=== PATIENT | male | born 1975 | race Caucasian/White ===

== ENCOUNTER → 2019-09-12 09:04 | Outpatient (BNVA) | payer MEDICARE, MEDICAID, SELFPAY | PROVIDERS: Visit Provider Nurse Practitioner Psychiatric/Mental Health | DX: F25.0 Schizoaffective disorder, bipolar type (principal); F43.12 Post-traumatic stress disorder, chronic; F17.210 Nicotine dependence, cigarettes, uncomplicated; F15.21 Other stimulant dependence, in remission | CPT/HCPCS: 99214 ==

== ENCOUNTER → 2020-01-31 07:36 | Outpatient (BNVA) | payer MEDICARE, MEDICAID, SELFPAY | PROVIDERS: Visit Provider Nurse Practitioner Psychiatric/Mental Health | DX: F20.0 Paranoid schizophrenia (principal); F43.12 Post-traumatic stress disorder, chronic; F17.210 Nicotine dependence, cigarettes, uncomplicated; F15.21 Other stimulant dependence, in remission | CPT/HCPCS: 99214 ==

== ENCOUNTER 2020-02-01 15:54 | Inpatient (IN) | payer MEDICARE, MEDICAID, SELFPAY ==
[2020-02-01 15:59] VITALS: BP 134/74; PULSE 81; RESP 16; TEMP 36.6; O2SAT 97; BMI 18.6
--- NOTE | 2020-02-01 16:01 | W.ED.PSYCH ---
HPI - Psych General: Chief Complaint: Psychiatric Symptoms Stated Complaint: 96 Time Seen by Provider: 02/01/20 15:57 Source: patient Mode of arrival: ambulatory Limitations: no limitations History of Present Illness: HPI Narrative: 44-year-old male with a history of depression along with substance abuse. Patient is brought under a 96-hour hold by police as he is states that he wants to kill himself by injecting mercury. Patient states he has been suicidal for days. Denies any worsening improving factors. MD complaint: suicidal ideation Onset (ago): day(s) History of same: Yes Relieving factors: none Exacerbating factors: none Associated symptoms: Reports depression and suicidal ideation Review of Systems Const: Denies: fever(s), chills, body aches or change in appetite Eyes: Denies: blurry vision or eye discomfort ENMT: Denies: throat pain or dental pain Card: Denies: chest pain Resp: Denies: dyspnea GI: Denies: abdominal pain, nausea, vomiting or diarrhea : Denies: dysuria Musc: Denies: neck pain or back pain Skin/Breast: Denies: rash Neuro: Denies: headache(s) Psych: Reports: depression and suicidal ideation Apolinar/Lymph: Denies: easy bruising All/Imm: Denies: urticaria PFSH ED PFSH: Medical History Amphetamine substance use disorder, moderate, in early remission Chronic post-traumatic stress disorder Nicotine dependence, cigarettes, uncomplicated Paranoid schizophrenia Social History Smoking and tobacco status: current every day smoker cigarettes Packs smoked per day: 1 Physical Exam Const: COMMON NORMALS: no acute distress, patient oriented x3 and healthy appearing HENMT: COMMON NORMALS: normocephalic and atraumatic HEAD & SCALP: normocephalic and atraumatic Eye: COMMON NORMALS: Equal, round and reactive pupils present and EOMs intact bilaterally PUPIL: Yes Equal, round and reactive pupils present Neck/C-Spine: COMMON NORMALS: full ROM and supple Chest: COMMONS NORMALS: normal inspection of the chest and normal palpation of entire chest wall Resp: COMMON NORMALS: normal respiratory effort, No retractions, No use of accessory muscles and clear to auscultation bilaterally AUSCULTATION: clear to auscultation bilaterally Cardio: COMMON NORMALS: regular rate, regular rhythm and No murmurs present (Cardio) RATE: regular rate RHYTHM: regular rhythm GI: COMMON NORMALS: Normal to inspection, nondistended, normoactive bowel sounds present, Soft to palpation, non-tender and no masses PALPATION: Yes Soft to palpation Extremity: COMMON NORMALS: normal to inspection and full ROM Neuro: COMMON NORMALS: patient oriented x3, moves all extremities and no focal motor deficits Psych: COMMON NORMALS: Normal thought process present and cooperative MOOD & AFFECT: Yes depressed mood THOUGHT PROCESS: Normal thought process present THOUGHT CONTENT: Yes Suicidality present Skin: COMMON NORMALS: no rashes or lesions noted and no wounds GENERAL SKIN EXAM: no rashes or lesions noted MDM - Psych MDM Narrative: Medical decision making narrative: Patient presents here with suicidal ideations and is under 96-hour hold. Patient medically cleared I spoke to psychiatrist Dr. Martin and will admit. Lab Data: Labs: Lab Results 02/01/20 02/01/20 02/01/20 Range/Units 16:18 16:18 16:50 WBC 8.9 (4.0-10.0) 10^3/ uL RBC 4.58 (4.1-5.3) 10^6/u L Hgb 14.0 (11.7-16.6) g/dL Hct 41.6 L (42.0-52.0) % MCV 90.8 (80-94) fL MCH 30.6 (28.0-34.0) pg MCHC 33.7 (30.0-36.0) g/dL RDW 14.1 (12.1-15.1) % Plt Count 290 (130-400) 10^3/c mm MPV 10.1 (7.4-10.4) fL Neut % (Auto) 65.0 % Lymph % (Auto) 24.9 % [place] % (Auto) 6.2 % Eos % (Auto) 2.7 % Baso % (Auto) 0.9 % Neut # (Auto) 5.8 (1.8-7.7) 10^3/u L Lymph # (Auto) 2.2 (0.8-4.8) 10^3/u L [place] # (Auto) 0.6 (0.2-0.9) 10^3/u L Eos # (Auto) 0.2 (0.0-0.8) 10^3/u L Baso # (Auto) 0.1 (0.0-0.1) 10^3/u L Nucleated RBC % (a uto) 0 % Nucleated RBCs # 0.0 /100WBC Sodium 139 (136-145) mmol/L Potassium 3.7 (3.5-5.1) mmol/L Chloride 103 (98-107) mmol/L Carbon Dioxide 24 (22-29) mmol/L Anion Gap 15.7 (5-19) BUN 8 (6-20) mg/dL Creatinine 0.7 (0.7-1.2) mg/dL GFR Calculation 123.1 (90-130) mL/min Glucose 111 (65-115) mg/dL Calculated Osmolal ity 285 (285-295) mOsm/k g Calcium 9.4 (8.5-10.5) mg/dL Total Bilirubin 0.3 (0.15-1.2) mg/dL AST 19 (0-40) U/L ALT 12 (0-41) U/L Alkaline Phosphata se 58 (40-130) IU/L Total Protein 7.0 (6.6-8.7) g/dL Albumin 4.6 (3.5-5.2) g/dL Globulin 2.4 (1.3-4.6) g/dL Salicylates < 0.3 L (3-10) mg/dL Urine Opiates Scre en Negative (Negative) ng/mL Acetaminophen < 5.0 L (10-30) ug/mL Ur Barbiturates Sc reen Negative (Negative) ng/mL Ur Phencyclidine S crn Negative (Negative) ng/mL Ur Amphetamines Sc reen Positive H (Negative) ng/mL U Benzodiazepines Scrn Negative (Negative) ng/mL Urine Cocaine Scre en Negative (Negative) ng/mL U Marijuana (THC) Screen Positive H (Negative) ng/mL Ethyl Alcohol < 10 (0-10) mg/dL Discharge Plan Discharge Patient Disposition: Admitted As Inpatient Admit Provider: Bernardo Martin Clinical Impression: Suicidal ideation Condition: Stable Discharge Date/Time: 02/01/20 17:17 Coding Level of Care Code ED Reversal Print Inspector for Chg Fwd Exam Comprehensive
[2020-02-01] MEDS: LORazepam 2 mg/mL INJ 1 mL IM (16:33)
[2020-02-01] MEDS: haloperidol inj 5 mg/mL INJ 1 mL IM (16:33)
[2020-02-01 16:35] LABS: Basophils # 0.1 10^3/uL (0.0-0.1); Basophils % 0.9 %; Eosinophils # 0.2 10^3/uL (0.0-0.8); Eosinophils % 2.7 %; Hematocrit 41.6 % (42.0-52.0); Lymphocytes # 2.2 10^3/uL (0.8-4.8); Lymphocytes % 24.9 %; Mean Corpuscular HGB Conc 33.7 g/dL (30.0-36.0); Mean Corpuscular Hemoglobin 30.6 pg (28.0-34.0); Mean Corpuscular Volume 90.8 fL (80-94); Mean Platelet Volume 10.1 fL (7.4-10.4); Monocytes # 0.6 10^3/uL (0.2-0.9); Monocytes % 6.2 %; Neutrophils # 5.8 10^3/uL (1.8-7.7); Nucleated Red Blood Cells % 0 %; Platelet Count 290 10^3/cmm (130-400); Red Blood Count 4.58 10^6/uL (4.1-5.3); Red Cell Distribution Width 14.1 % (12.1-15.1); White Blood Count 8.9 10^3/uL (4.0-10.0)
[2020-02-01 16:54] LABS: Alanine Aminotransferase 12 U/L (0-41); Albumin Level 4.6 g/dL (3.5-5.2); Alkaline Phosphatase 58 IU/L (40-130); Anion Gap 15.7 (5-19); Aspartate Amino Transferase 19 U/L (0-40); Blood Urea Nitrogen 8 mg/dL (6-20); Calcium 9.4 mg/dL (8.5-10.5); Carbon Dioxide 24 mmol/L (22-29); Chloride 103 mmol/L (98-107); Globulin 2.4 g/dL (1.3-4.6); Glomerular Filtration Rate 123.1 mL/min (90-130); Glucose 111 mg/dL (65-115); Osmolality Calculated 285 mOsm/kg (285-295); Potassium 3.7 mmol/L (3.5-5.1); Sodium 139 mmol/L (136-145); Total Bilirubin 0.3 mg/dL (0.15-1.2)
[2020-02-01 17:07] LABS: Acetaminophen < 5.0 ug/mL (10-30); Alcohol Level < 10 mg/dL (0-10); Salicylate < 0.3 mg/dL (3-10)
[2020-02-01 17:07] LABS: Amphetamines Screen Urine Positive (Negative); Barbiturates Screen Urine Negative (Negative); Benzodiazepines Screen Urine Negative (Negative); Cocaine Screen Urine Negative (Negative); Opiate Screen Urine Negative (Negative); PCP Screen Urine Negative (Negative); THC Screen Urine Positive (Negative)
[2020-02-01 17:31] VITALS: BP 120/67; PULSE 72; RESP 20; TEMP 37.2; O2SAT 97
[2020-02-01 22:00] VITALS: BP 124/80; PULSE 75; RESP 15; TEMP 36.8; O2SAT 99
[2020-02-02 06:00] VITALS: BP 125/87; PULSE 85; RESP 17; TEMP 36.8; O2SAT 98
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
[2020-02-02 14:00] VITALS: BP 112/79; PULSE 93; RESP 20; TEMP 36.7; O2SAT 98
[2020-02-02] MEDS: hyDROXYzine 25 mg Capsule 50 MG PO (20:40)
[2020-02-02] MEDS: haloperidol 5 mg Tablet PO (20:40)
[2020-02-02] MEDS: trazodone 50 mg Tablet PO (20:41)
[2020-02-02 20:42] VITALS: BP 109/68; PULSE 82; RESP 16; TEMP 36.9; O2SAT 95
[2020-02-03 06:00] VITALS: BP 103/74; PULSE 94; RESP 15; TEMP 36.8; O2SAT 96
--- NOTE | 2020-02-03 09:32 | P.PN_ITS ---
Subjective NPU Subjective: Interval history: Jaya presents today with not much to say. Maybe a little bit brighter in affect but reporting that the Haldol was fine last night. He understands the plan of getting him on the Haldol and likely giving him his first injection prior to discharge at the beginning of the week. He denied any major issues and reports that he slept fairly well. Mental Status Exam MSE Comments: This is an underweight, white male, with limited dress, grooming, and eye contact. No abnormal movements except for psychomotor retardation. Semi-cooperative with exam in mild distress. Speech was decreased rate and volume and limited. Mood described as a little better; affect congruent. Thought process, organized. He does endorse suicidal ideation. Attention, concentration, and memory appear intact but were not formally tested. He is alert and oriented times three. Insight and judgment are limited. Impulse control is impaired. Vitals/I&O/Wt Last Vital Signs Temp 98.3 F 02/03/20 20:01 Pulse 86 02/03/20 20:01 Resp 14 02/03/20 20:01 BP 96/65 02/03/20 20:01 Pulse Ox 96 02/03/20 20:01 Data NPU : 02/01/20 16:18 02/01/20 16:18 A&P Additional A&P Information (1) Suicidal ideation: (2) Paranoid schizophrenia: (3) Amphetamine substance use disorder, moderate, in early remission: (4) Nicotine dependence, cigarettes, uncomplicated: (5) Chronic post-traumatic stress disorder: This is a 44 year old, white male, with a long history of mental health, legal addiction, and significant psychosocial issues with a current diagnosis with his outpatient provider of schizophrenia, currently with active addiction and a willingness to get restarted on medication. Continue current medication Encourage individual, group, and milieu therapy. Continue q 15-minute checks for safety. Will work for outpatient discharge to sober living treatment at the highest level of care to which he is willing to commit. Involuntary Hold Information 96 Hour Hold: 96 Hour Involuntary Admission: Yes 96 Hour Hold Ending Date: 02/07/20 96 Hour Hold Ending Time: 15:54 Attestations NPU Medical Necessity Statement*: Inpatient hospitalization is medically necessary and the clinically appropriate intervention at this time. We will monitor medications and make changes as indicated. Likely length of stay is 2-4 days. Coding Level of Care Code Acute [employer] Teacher for Arturo Mtz
[2020-02-03 14:00] VITALS: BP 104/67; PULSE 99; RESP 18; TEMP 36.9; O2SAT 98
[2020-02-03 20:01] VITALS: BP 96/65; PULSE 86; RESP 14; TEMP 36.8; O2SAT 96
[2020-02-03] MEDS: haloperidol 5 mg Tablet PO (21:21)
[2020-02-04 06:00] VITALS: BP 123/85; PULSE 83; RESP 17; TEMP 36.7; O2SAT 98
[2020-02-04] MEDS: nicotine 2 mg Gum BUCCAL (12:35)
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
[2020-02-04 13:10] VITALS: BP 124/81; PULSE 98; RESP 18; TEMP 36.6; O2SAT 97
[2020-02-04] MEDS: trazodone 50 mg Tablet PO (21:22)
[2020-02-04] MEDS: haloperidol 5 mg Tablet PO (21:22)
[2020-02-04 22:00] VITALS: BP 113/76; PULSE 74; RESP 16; TEMP 36.8; O2SAT 96
--- NOTE | 2020-02-04 23:05 | PC.NURSE ---
Pt was given scheduled Haldol and PRN Trazodone at HS.
[2020-02-05 06:00] VITALS: BP 91/61; PULSE 94; RESP 16; TEMP 36.7; O2SAT 95
[2020-02-05] MEDS: nicotine 2 mg Gum BUCCAL ×2 (09:11→11:23)
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
[2020-02-05 13:06] VITALS: BP 91/61; PULSE 94; RESP 16; TEMP 36.7; O2SAT 95
--- NOTE | 2020-02-05 15:56 | PC.SOCIAL ---
*IMM* Patient Received the Important Message from Medicare. Signed copy is in the chart and a copy was gave to the patient.
== END 2020-02-05 16:45 | disposition home or self-care (01) | DRG 885 ==
LOC: ER 16:26 → NP 17:10
PROVIDERS: Emergency Medicine; Admitting Provider Psychiatry & Neurology Psychiatry; Visit Provider Psychiatry & Neurology Psychiatry
DX: F20.0 Paranoid schizophrenia (principal); R45.851 Suicidal ideations; F17.210 Nicotine dependence, cigarettes, uncomplicated; F43.12 Post-traumatic stress disorder, chronic; F15.11 Other stimulant abuse, in remission
CPT/HCPCS: 12345; 36415; 80053; 80306; 80307; 85025; 96372; 99214; 99284; J1630; J1631; J2060

== ENCOUNTER → 2020-05-31 15:30 | Outpatient (BNVA) | payer MEDICARE, MEDICAID, SELFPAY | PROVIDERS: Visit Provider Nurse Practitioner Psychiatric/Mental Health | DX: F20.0 Paranoid schizophrenia (principal); F43.12 Post-traumatic stress disorder, chronic; F17.210 Nicotine dependence, cigarettes, uncomplicated; F15.21 Other stimulant dependence, in remission | CPT/HCPCS: 99213 ==

== ENCOUNTER → 2020-06-18 13:35 | Outpatient (BNVA) | payer MEDICARE, MEDICAID, SELFPAY | PROVIDERS: Visit Provider Nurse Practitioner Psychiatric/Mental Health | DX: F20.0 Paranoid schizophrenia (principal) | CPT/HCPCS: 96372; J1631 ==

== ENCOUNTER → 2020-07-02 13:01 | Outpatient (BNVA) | payer MEDICARE, MEDICAID, SELFPAY | PROVIDERS: Visit Provider Nurse Practitioner Psychiatric/Mental Health | DX: F20.0 Paranoid schizophrenia (principal); F43.12 Post-traumatic stress disorder, chronic; F17.210 Nicotine dependence, cigarettes, uncomplicated; F15.21 Other stimulant dependence, in remission | CPT/HCPCS: 99213 ==

== ENCOUNTER → 2020-07-18 14:49 | Outpatient (BNVA) | payer MEDICARE, MEDICAID, SELFPAY | PROVIDERS: Visit Provider Nurse Practitioner Psychiatric/Mental Health | DX: F20.0 Paranoid schizophrenia (principal); F43.12 Post-traumatic stress disorder, chronic; F17.210 Nicotine dependence, cigarettes, uncomplicated; F15.21 Other stimulant dependence, in remission | CPT/HCPCS: 96372; 99213; J1631 ==

== ENCOUNTER 2021-03-03 12:23 | Observation (INO) | payer MEDICARE, MEDICAID, SELFPAY ==
[2021-03-03] VITALS (13 sets, daily range): BP systolic 74–129; BP diastolic 38–91; PULSE 45–101; RESP 10–33; TEMP 36.6–36.8; O2SAT 2–100; BMI 18.6
--- NOTE | 2021-03-03 12:35 | XRR_ITS ---
PROCEDURE INFORMATION: Exam: XR Chest Exam date and time: 03/03/2021 12:35 PM Age: 45 years old Clinical indication: Pain and injury or trauma; Fall; Blunt trauma (contusions or hematomas); Chest wall pain; Additional info: Fall/ arm pain TECHNIQUE: Imaging protocol: XR of the chest. Views: 1 view. COMPARISON: CT cervical spin wo con* [id number] 03/03/2021 12:50 PM FINDINGS: Lungs: Unremarkable. No consolidation. Pleural spaces: Unremarkable. No pleural effusion. No pneumothorax. Heart/Mediastinum: Unremarkable. No cardiomegaly. Bones/joints: Unremarkable. XR/XR chest 1V portable [id number] IMPRESSION: No acute findings.
--- NOTE | 2021-03-03 12:35 | CT_ITS ---
WS: [id number] CT HEAD NONCONTRAST HISTORY: fall/head contusion/ seizure TECHNIQUE: Contiguous axial imaging performed through the brain in 2.5 mm imaging. Bone and soft tiss ue windows. Sagittal and coronal reformats reviewed. All CT scans at [facility] use at le ast one of these dose optimization techniques: automated exposure control; mA and/or kV adjustment pe r patient size (includes targeted exams where dose is matched to clinical indication); or iterative r econstruction. DLP: 838.14 mGy.cm COMPARISON: 06/13/2014 No acute intracranial hemorrhage, midline shift or mass effect. No atrophy or prior infarcts or herniation. Ventricles: Normal size with no hydrocephalus. Paranasal sinuses: As visualized are clear. Mastoid air cells: Well pneumatized. Calvarium and scalp: Skull is intact with no soft tissue edema or swelling. CT/CT head wo con* [id number] IMPRESSION: Negative head CT.
--- NOTE | 2021-03-03 12:35 | XRR_ITS ---
PROCEDURE INFORMATION: Exam: XR Right Humerus Exam date and time: 03/03/2021 12:35 PM Age: 45 years old Clinical indication: Pain and injury or trauma; Fall; Blunt trauma (contusions or hematomas); Arm, upper; Right; Upper arm; Additional info: Fall/ arm pain TECHNIQUE: Imaging protocol: XR Right humerus. Views: 2 or more views. COMPARISON: US SoftTissue/Extrem t [id number] 03/19/2019 3:11 PM FINDINGS: Bones/joints: Negative for acute bony abnormality Soft tissues: Unremarkable XR/[place] [id number] IMPRESSION: No acute findings.
--- NOTE | 2021-03-03 12:35 | CT_ITS ---
WS: [id number] CT CERVICAL SPINE HISTORY: fall/ neck pain TECHNIQUE: Contiguous 2.5 mm axial imaging performed through the entire cervical spine. Sagittal and coronal reformats also performed. All CT scans at [facility] use at least one of these do se optimization techniques: automated exposure control; mA and/or kV adjustment per patient size (inc ludes targeted exams where dose is matched to clinical indication); or iterative reconstruction. DLP: 445.34 mGy.cm COMPARISON: None available. Straightening of the normal cervical lordosis. Reversal of normal size curvature at C5-6. Disc space narrowing and desiccation with osteophytosis most significant at the C5-6 level. Lateral masses of C1 and C2 are aligned. Odontoid is intact. Craniocervical junction is normal. C2-C3: Normal. C3-C4: Normal. C4-C5: Mild osteophytic ridging and mild LEFT foraminal narrowing. C5-C6: Moderate osteophytic ridging and a central disc protrusion. Mild central with moderate bilater al foraminal narrowing. C6-C7: Diffuse osteophytic ridging with bilateral foraminal osteophytes resulting in bilateral mild-t o-moderate foraminal stenosis. C7-T1: Normal. Soft tissues are normal. Lung apices are clear. CT/CT cervical spin wo con* [id number] IMPRESSION: 1. No acute cervical spine fracture. 2. Reversal normal cervical lordosis centered at C5-6. 3. Moderate bilateral foraminal stenosis at C5-6 and mild to moderate at C6-7 due to osteophytes predominantly.
--- NOTE | 2021-03-03 12:37 | ECG_ITS ---
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 Measurements Intervals [place] Rate: 77 P: 72 [place]: 130 QRS: 61 QRSD: 86 T: 71 QT: 380 QTc: 433 Interpretive Statements SINUS RHYTHM No previous ECG available for comparison Electronically Signed On 03-03-2021 19:01:17 CDT by Lj Booth M.D. [email or web address]
--- NOTE | 2021-03-03 12:43 | ED_ITS ---
HPI - Fall General: Chief Complaint: General Medical Stated Complaint: FALL, SEIZURE LIKE ACTIVITY Time Seen by Provider: 03/03/21 12:24 History of Present Illness: HPI Narrative: The patient is a 45-year-old male incarcerated who comes to the ER after a fall at group home where he possibly had a seizure. He said he was on the phone with his mother and told her that it felt like he was going to pass out. Officers noted a loud bang where he then fell hitting his arm on a fan and head on the ground. He said approximately 2 minutes he had some shaking and confusion on the floor that represented a seizure to them. After that he woke and was mildly confused for a minute or 2 and then answered questions appropriately. The patient says he thinks he has had several seizures in the past at home where he just wakes up and was unresponsive at some point but he does not know and has not been diagnosed with seizures. He takes no medications for this. He chronically uses methamphetamines but has not for 2 weeks since he has been in group home. His only complaint is right arm pain near the tricep muscle where it hit the fan. He does not even complain of a headache however officers say his fall and head injury were significant. He is in c-collar. EMS noted his sugar was in the 40s and they gave him oral glucose which brought it up to the 80s. complaint: fall Fall from: standing Fall witnessed: no Place fall occurred: other (group home) Loss of consciousness: Unsure Prolonged down time: no Symptoms prior to fall: lightheadedness Location of injury: head Severity: moderate Associated symptoms-after fall: Reports no associated symptoms; Denies abdominal pain, chest pain, confusion, difficulty walking, headache(s) or neck pain Review of Systems General: Reports: 10 or more systems reviewed and unremarkable except in HPI and below Const: Denies: fatigue Eyes: Denies: change in vision, blurry vision or eye redness ENMT: Denies: throat pain, swelling of lips/tongue, ear or mastoid pain or nasal congestion Card: Denies: chest pain, palpitations, irregular heart rhythm, edema, dyspnea on exertion or orthopnea Resp: Denies: dyspnea, productive cough or non-productive cough GI: Denies: abdominal pain, diarrhea or GI cramping : Denies: flank pain, urinary frequency or urinary urgency Musc: Reports: other (Right arm pain); Denies: neck pain, back pain, extremity pain, joint pain, joint redness, limited range of motion or muscle weakness Skin/Breast: Denies: rash, pruritus, erythema, skin pain or skin tenderness Neuro: Denies: headache(s), numbness in extremities, weakness in extremities, sensory changes, difficulty walking, dizziness, confusion or Slurred speech present Psych: Denies: anxiety or depression Endo: Denies: polyuria All/Imm: Denies: urticaria, throat swelling or tongue swelling PFSH ED PFSH: Medical History Amphetamine substance use disorder, moderate, in early remission Chronic post-traumatic stress disorder Nicotine dependence, cigarettes, uncomplicated Paranoid schizophrenia Surgical History H/O knee surgery Family History Family/Other Family history of premature coronary artery disease Uncle sudden cardiac arrest age 19 Social History Smoking and tobacco status: current every day smoker cigarettes Packs smoked per day: 2 Alcohol intake: never Substance/Drug Use: current Substance/Drug use type: Marijuana and Methamphetamine Physical Exam Const: COMMON NORMALS: no acute distress, average body habitus, patient oriented x3, no limitations, healthy appearing, alert and well nourished GENERAL APPEARANCE: cooperative, comfortable, well kempt and well developed ORIENTATION/CONSCIOUSNESS: Yes awake, Yes oriented to person, Yes oriented to place and Yes oriented to time HENMT: COMMON NORMALS: normocephalic, external ears normal and Normal external nose present HEAD & SCALP: normal to inspection and normocephalic NOSE: Normal external nose present EXTERNAL EAR: Yes external ears normal MOUTH: Normal oral and palatal mucosa present THROAT: posterior oropharynx normal Eye: COMMON NORMALS: Equal, round and reactive pupils present and EOMs intact bilaterally GENERAL EYE: appearance normal, both eyes and all related structures PUPIL: Yes Equal, round and reactive pupils present Neck/C-Spine: COMMON NORMALS: full ROM, no lymphadenopathy, no meningeal signs and no JVD GENERAL: Yes normal visual inspection Lymph: LYMPHATIC: no lymphadenopathy noted Chest: COMMONS NORMALS: normal inspection of the chest and normal palpation of entire chest wall Resp: COMMON NORMALS: normal respiratory effort, No retractions, No use of accessory muscles, clear to auscultation bilaterally and percussion normal EFFORT & INSPECTION: Yes able to speak in complete sentences AUSCULTATION: clear to auscultation bilaterally PERCUSSION: percussion normal Cardio: COMMON NORMALS: no JVD, regular rate, regular rhythm, S1 normal heart sound present, S2 normal heart sound present and Peripheral pulses 2+ throughout RATE: regular rate RHYTHM: regular rhythm HEART SOUNDS: S1 normal heart sound present and S2 normal heart sound present PERIPHERAL PULSES: Peripheral pulses 2+ throughout GI: COMMON NORMALS: Normal to inspection, nondistended, normoactive bowel sounds present, Soft to palpation, non-tender and no masses INSPECTION: Yes normal to inspection PALPATION: Yes Soft to palpation : COMMON NORMALS: Yes no CVA tenderness BLADDER/KIDNEY EXAM: Yes no CVA tenderness Back/Pelvis: COMMON NORMALS: no CVA tenderness, thoracic and lumbar spine normal to inspection, no thoracic nor lumbar tenderness and thoraco-lumbar ROM normal Extremity: COMMON NORMALS: normal to inspection, full ROM, capillary refill normal, no joint enlargement and no pedal edema GENERAL: Yes normal exam except as noted Neuro: COMMON NORMALS: patient oriented x3, CN's II-XII intact bilaterally, moves all extremities, no focal motor deficits, no sensory deficits noted and gait normal SENSORIUM/ORIENTATION: Yes alert, Yes oriented to person, Yes oriented to place and Yes oriented to time MENINGEAL SIGNS: Yes no meningeal signs Psych: COMMON NORMALS: mental status grossly normal, Normal thought process present, cooperative, normal affect and speech normal APPEARANCE: Yes well kempt ATTITUDE: Yes calm SPEECH: Yes normal speech THOUGHT PROCESS: Normal thought process present Skin: COMMON NORMALS: no rashes or lesions noted GENERAL SKIN EXAM: no rashes or lesions noted Course Vital Signs: Vital signs: Vital Signs Temperature 98.3 F 03/03/21 19:30 Pulse Rate 93 03/03/21 22:00 Respiratory Rate 10 L 03/03/21 19:30 Blood Pressure 129/77 03/03/21 19:30 Pulse Oximetry 90 03/03/21 19:30 MDM - Fall MDM Narrative: Medical decision making narrative: The patient is a 45-year-old male who came to the ER after he had a syncopal episode and possible seizure while in group home. He has been in group home for 2 weeks. Formerly a meth abuser. His initial work-up for his injuries was negative and as the nurse evaluated him he began to feel nauseous and had a bradycardic episode with a couple long asystole pauses a few seconds long and his rate went down to the 30s for a couple minutes. He was slightly altered, slightly hypoxic in the mid 80s, and shaking. I understand how this could look like a seizure to nonmedical personnel. During the initial interview he said he assumed he has seizures because he has had several similar episodes at home where he has woken up on the floor and does not know what happened. It is possible these episodes are likely caused by a bradycardia event though unknown. Discussed with cardiology Dr. Greogry who will consult upstairs and Dr. Xavier accepts for admission. Lab Data: Labs: Lab Results 03/03/21 03/03/21 03/03/21 Range/Units 14:25 14:25 14:25 WBC 13.4 H (4.0-10.0) 10^3/ uL RBC 4.81 (4.1-5.3) 10^6/u L Hgb 14.7 (11.7-16.6) g/dL Hct 43.9 (42.0-52.0) % MCV 91.3 (80-94) fL MCH 30.6 (28.0-34.0) pg MCHC 33.5 (30.0-36.0) g/dL RDW 12.7 (12.1-15.1) % Plt Count 339 (130-400) 10^3/c mm MPV 10.8 H (7.4-10.4) fL Neut % (Auto) 75.9 % Lymph % (Auto) 18.1 % [place] % (Auto) 4.3 % Eos % (Auto) 0.6 % Baso % (Auto) 0.7 % Neut # (Auto) 10.14 H (1.8-7.7) 10^3/u L Lymph # (Auto) 2.4 (0.8-4.8) 10^3/u L [place] # (Auto) 0.6 (0.2-0.9) 10^3/u L Eos # (Auto) 0.1 (0.0-0.8) 10^3/u L Baso # (Auto) 0.1 (0.0-0.1) 10^3/u L Nucleated RBC % (a uto) 0 % Nucleated RBCs # 0.0 /100WBC Sodium 138 (136-145) mmol/L Potassium 4.3 (3.5-5.1) mmol/L Chloride 99 (98-107) mmol/L Carbon Dioxide 28 (22-29) mmol/L Anion Gap 15.3 (5-19) BUN 10 (6-20) mg/dL Creatinine 0.9 (0.7-1.2) mg/dL GFR Calculation 91.7 (90-130) mL/min Glucose 110 (65-115) mg/dL Calculated Osmolal ity 286 (285-295) mOsm/k g Lactate 2.6 H (0.5-2.2) mmol/L Calcium 9.5 (8.5-10.5) mg/dL Phosphorus 3.5 (2.5-4.5) mg/dL Magnesium 2.1 (1.7-2.3) mg/dL Total Bilirubin 0.3 (0.15-1.2) mg/dL AST 12 (0-40) U/L ALT 8 (0-41) U/L Alkaline Phosphata se 65 (40-130) IU/L Creatine Kinase 26 L (39-308) U/L Troponin T Baselin e (0-15) ng/L Total Protein 6.8 (6.6-8.7) g/dL Albumin 4.4 (3.5-5.2) g/dL Globulin 2.4 (1.3-4.6) g/dL TSH 1.60 (0.27-4.20) uIU/ mL Urine Color (Yellow) Urine Appearance (CLEAR) Urine pH (5-7) Ur Specific Gravit y (1.005-1.030) Urine Protein (Negative) Urine Glucose (UA) (Normal) Urine Ketones (Negative) Urine Blood (Negative) Urine Nitrate (Negative) Urine Bilirubin (Negative) Prot Sulfosalicyli c Acd (Negative) Urine Urobilinogen (Negative) mg/dL Ur Leukocyte Rosario ase (Negative) Urine Opiates Scre en (Negative) ng/mL Ur Barbiturates Sc reen (Negative) ng/mL Ur Phencyclidine S crn (Negative) ng/mL Ur Amphetamines Sc reen (Negative) ng/mL U Benzodiazepines Scrn (Negative) ng/mL Urine Cocaine Scre en (Negative) ng/mL U Marijuana (THC) Screen (Negative) ng/mL 03/03/21 03/03/21 03/03/21 Range/Units 14:25 15:15 15:15 WBC (4.0-10.0) 10^3/ uL RBC (4.1-5.3) 10^6/u L Hgb (11.7-16.6) g/dL Hct (42.0-52.0) % MCV (80-94) fL MCH (28.0-34.0) pg MCHC (30.0-36.0) g/dL RDW (12.1-15.1) % Plt Count (130-400) 10^3/c mm MPV (7.4-10.4) fL Neut % (Auto) % Lymph % (Auto) % [place] % (Auto) % Eos % (Auto) % Baso % (Auto) % Neut # (Auto) (1.8-7.7) 10^3/u L Lymph # (Auto) (0.8-4.8) 10^3/u L [place] # (Auto) (0.2-0.9) 10^3/u L Eos # (Auto) (0.0-0.8) 10^3/u L Baso # (Auto) (0.0-0.1) 10^3/u L Nucleated RBC % (a uto) % Nucleated RBCs # /100WBC Sodium (136-145) mmol/L Potassium (3.5-5.1) mmol/L Chloride (98-107) mmol/L Carbon Dioxide (22-29) mmol/L Anion Gap (5-19) BUN (6-20) mg/dL Creatinine (0.7-1.2) mg/dL GFR Calculation (90-130) mL/min Glucose (65-115) mg/dL Calculated Osmolal ity (285-295) mOsm/k g Lactate (0.5-2.2) mmol/L Calcium (8.5-10.5) mg/dL Phosphorus (2.5-4.5) mg/dL Magnesium (1.7-2.3) mg/dL Total Bilirubin (0.15-1.2) mg/dL AST (0-40) U/L ALT (0-41) U/L Alkaline Phosphata se (40-130) IU/L Creatine Kinase (39-308) U/L Troponin T Baselin e 6 (0-15) ng/L Total Protein (6.6-8.7) g/dL Albumin (3.5-5.2) g/dL Globulin (1.3-4.6) g/dL TSH (0.27-4.20) uIU/ mL Urine Color Yellow (Yellow) Urine Appearance Clear (CLEAR) Urine pH 9 H (5-7) Ur Specific Gravit y 1.015 (1.005-1.030) Urine Protein Neg (Negative) Urine Glucose (UA) Norm (Normal) Urine Ketones Negative (Negative) Urine Blood Neg (Negative) Urine Nitrate Negative (Negative) Urine Bilirubin Neg (Negative) Prot Sulfosalicyli c Acd Negative (Negative) Urine Urobilinogen Norm (Negative) mg/dL Ur Leukocyte Rosario ase Negative (Negative) Urine Opiates Scre en Negative (Negative) ng/mL Ur Barbiturates Sc reen Negative (Negative) ng/mL Ur Phencyclidine S crn Negative (Negative) ng/mL Ur Amphetamines Sc reen Negative (Negative) ng/mL U Benzodiazepines Scrn Negative (Negative) ng/mL Urine Cocaine Scre en Negative (Negative) ng/mL U Marijuana (THC) Screen Negative (Negative) ng/mL Discharge Plan Discharge Patient Disposition: Admitted As Inpatient Admit Provider: Judith Xavier Clinical Impression: Bradycardia, Sinus pause Condition: Stable Coding Level of Care Code ED Instructor Hairspring for g Fwd Exam Comprehensive
--- NOTE | 2021-03-03 12:47 | PC.NURSE ---
pt to ct by stretcher with tech
--- NOTE | 2021-03-03 13:55 | PC.NURSE ---
multiple IV stick attempts deemed unsuccessful. ED provider notified.
--- NOTE | 2021-03-03 13:59 | PC.NURSE ---
C-collar off pt
[2021-03-03] MEDS: sodium chloride 0.9% 1,000 ML 999 ML IV (14:00)
--- NOTE | 2021-03-03 14:19 | ECG_ITS ---
[facility] Test Date: 2021-03-03 Pat Name: Jaya Cary Department: Room: Gender: Male Scallop Cutter Machine: : 1975 Requested By: Jeancarlos Grover Order Number: [id number] Pooja MD: Lj Booth M.D. Measurements Intervals [place] Rate: 59 P: 74 CA: 128 QRS: 71 QRSD: 86 T: 78 QT: 468 QTc: 466 Interpretive Statements SINUS BRADYCARDIA PROLONGED QT INTERVAL Diffuse early repolarization changes INTERPRETATION BASED ON A DEFAULT AGE OF 40 YEARS Compared to ECG 03/03/2021 13:22:18 Prolonged QT interval now present Sinus rhythm no longer present Electronically Signed On 03-03-2021 19:01:34 CDT by Lj Booth M.D. [id number] f
--- NOTE | 2021-03-03 14:29 | PC.NURSE ---
while IV starts being attempted pt had an episode of symptomatic bradycardia. pt pulse dropped to 25bpm. Pt became very nauseous, diaphoretic, and dizzy. ED provider in room
--- NOTE | 2021-03-03 14:38 | PC.NURSE ---
episodes of bradycardia printout in paper chart.
[2021-03-03 14:40] LABS: Basophils # 0.1 10^3/uL (0.0-0.1); Basophils % 0.7 %; Eosinophils # 0.1 10^3/uL (0.0-0.8); Eosinophils % 0.6 %; Hematocrit 43.9 % (42.0-52.0); Hemoglobin 14.7 g/dL (11.7-16.6); Lymphocytes # 2.4 10^3/uL (0.8-4.8); Lymphocytes % 18.1 %; Mean Corpuscular HGB Conc 33.5 g/dL (30.0-36.0); Mean Corpuscular Hemoglobin 30.6 pg (28.0-34.0); Mean Corpuscular Volume 91.3 fL (80-94); Mean Platelet Volume 10.8 fL (7.4-10.4); Monocytes # 0.6 10^3/uL (0.2-0.9); Monocytes % 4.3 %; Neutrophils # 10.14 10^3/uL (1.8-7.7); Neutrophils % 75.9 %; Nucleated Red Blood Cells % 0 %; Platelet Count 339 10^3/cmm (130-400); Red Blood Count 4.81 10^6/uL (4.1-5.3); Red Cell Distribution Width 12.7 % (12.1-15.1); White Blood Count 13.4 10^3/uL (4.0-10.0)
[2021-03-03 14:52] LABS: Troponin(5th) Baseline 6 ng/L (0-15)
[2021-03-03 14:57] LABS: Lactate (Lactic Acid level) 2.6 mmol/L (0.5-2.2)
[2021-03-03 15:06] LABS: Alanine Aminotransferase 8 U/L (0-41); Albumin Level 4.4 g/dL (3.5-5.2); Alkaline Phosphatase 65 IU/L (40-130); Anion Gap 15.3 (5-19); Aspartate Amino Transferase 12 U/L (0-40); Blood Urea Nitrogen 10 mg/dL (6-20); Calcium 9.5 mg/dL (8.5-10.5); Carbon Dioxide 28 mmol/L (22-29); Chloride 99 mmol/L (98-107); Creatine Phosphokinase 26 U/L (39-308); Creatinine Clr Calc Pharmacy 87.3585; Globulin 2.4 g/dL (1.3-4.6); Glomerular Filtration Rate 91.7 mL/min (90-130); Glucose 110 mg/dL (65-115); Magnesium 2.1 mg/dL (1.7-2.3); Osmolality Calculated 286 mOsm/kg (285-295); Phosphorus 3.5 mg/dL (2.5-4.5); Potassium 4.3 mmol/L (3.5-5.1); Sodium 138 mmol/L (136-145); Total Bilirubin 0.3 mg/dL (0.15-1.2); Total Protein 6.8 g/dL (6.6-8.7)
[2021-03-03 15:32] LABS: Add Urine Microscopic? NO; Charge for UA Resulting for Rev
[2021-03-03 15:45] LABS: Bilirubin Urine Neg (Negative); Blood Urine Neg (Negative); Glucose Urine UA Norm (Normal); Ketones Urine Negative (Negative); Leukocyte Esterase Urine Negative (Negative); Nitrate Urine Negative (Negative); Protein Urine Neg (Negative); Specific Gravity, Urine 1.015 (1.005-1.030); Sulfosalicylic Acid Urine Negative (Negative); Urine Appearance Clear (CLEAR); Urine Color Yellow (Yellow); Urobilinogen Urine Norm (Negative); pH Urine 9 (5-7)
[2021-03-03 15:51] LABS: Amphetamines Screen Urine Negative (Negative); Barbiturates Screen Urine Negative (Negative); Benzodiazepines Screen Urine Negative (Negative); Cocaine Screen Urine Negative (Negative); Opiate Screen Urine Negative (Negative); PCP Screen Urine Negative (Negative); THC Screen Urine Negative (Negative)
--- NOTE | 2021-03-03 16:19 | ECG_ITS ---
[facility] Test Date: 2021-03-03 Pat Name: Jaya Cary Department: Room: Gender: Male Plastics Nurse: : 1975 Requested By: Jeancarlos Grover Order Number: [id number] Pooja MD: Lj Booth M.D. Measurements Intervals [place] Rate: 81 P: 74 WI: 130 QRS: 62 QRSD: 93 T: 76 QT: 393 QTc: 458 Interpretive Statements SINUS RHYTHM WITH SINUS ARRHYTHMIA Compared to ECG 03/03/2021 14:12:08 Sinus bradycardia no longer present Prolonged QT interval no longer present Electronically Signed On 03-03-2021 19:04:46 CDT by Lj Booth M.D. [id number]
--- NOTE | 2021-03-03 16:27 | P.CONIM_ITS ---
Providers/Reason For Consult Consulting Physician/Specialty*: Dr. Gregory, cardiology Reason for Consult*: Bradycardia, syncopal episode Requesting Physician: Dr. Mario History of Present Illness History of Present Illness Jaya Cary is a 45 year old male with history of IV drug abuse (methamphetamine and opiates, quit 1 year back as per patient), currently smoking marijuana and methamphetamine. He also has history of psychosis paranoid schizophrenia and chronic PTSD. He has been in and out of penitentiary multiple times. Currently he is in penitentiary for last 2 weeks for charges of burglary and resisting arrest. He was talking to his mom over the phone earlier today when he fell, passed out and possibly had a seizure approx 2 min in duration. He hit his arm and head on the ground. EMS was called and apparently her sugar was in 40s and he was given oral glucose prior to his arrival to the ER. No known prior history of seizures. Patient does tell me that he has been having intermittent episodes of presyncope which on several occasions have been positional and associated with nausea for last several years. While in ER patient's heart rate dropped from 100 bpm to 20-30's and he had ~3.9 sec longest pause with blood pressure dropping systolically and 70s. He received 1 L of normal saline with improvement in his blood pressure. At the time of examination patient complains of intermittent episodes of chest discomfort that has been going on for last several years. He has not been vaccinated against COVID-19. Patient states he has not been taking any medications on a regular basis for his paranoid schizophrenia. EKG on arrival showed sinus rhythm, normal axis no ST-T wave changes. Subsequent EKG with sinus bradycardia at 59 bpm with prolonged QT interval. Review of Systems General: Reports: 10 or more systems reviewed and unremarkable except in HPI and below Const: Denies: fatigue Eyes: Denies: change in vision or blurry vision ENMT: Denies: swelling of lips/tongue or nasal congestion Card: Reports: chest pain; Denies: palpitations, irregular heart rhythm, edema, dyspnea on exertion or orthopnea Resp: Denies: dyspnea, productive cough or non-productive cough GI: Denies: abdominal pain, diarrhea or GI cramping : Denies: urinary frequency or urinary urgency Musc: Reports: other (Right arm pain); Denies: neck pain, back pain, extremity pain, joint pain, joint redness, limited range of motion or muscle weakness Skin/Breast: Denies: rash, skin pain or skin tenderness Neuro: Reports: confusion and seizure-like activity; Denies: headache(s), numbness in extremities, weakness in extremities, sensory changes, difficulty walking, dizziness or Slurred speech present Psych: Denies: anxiety or depression Endo: Denies: polyuria All/Imm: Denies: throat swelling or tongue swelling Meds/Allergies Home Medications and Allergies Home Medications Medication Instructions Recorded Confirmed Last Taken Type clonazepam 1 mg tablet 1 mg PO TID PRN #90 tab 02/18/21 03/03/21 Unknown Rx haloperidol 10 mg tablet 10 mg PO TID PRN #90 tab 02/18/21 03/03/21 Unknown Rx hydroxyzine HCl 50 mg tablet 50 mg PO BID PRN #60 tab 02/20/21 03/03/21 03/02/21 Rx Allergies Allergy/AdvReac Type Severity Reaction Status Date / Time Penicillins Allergy Unknown Unknown Verified 02/01/20 16:24 teramycin Allergy Unknown Uncoded 02/01/20 16:14 PFSH Acute PFSH: Medical History (Updated 03/03/21 @ 17:42 by Lavonne Gregory MD) Amphetamine substance use disorder, moderate, in early remission Chronic post-traumatic stress disorder Nicotine dependence, cigarettes, uncomplicated Paranoid schizophrenia Social History Smoking and tobacco status: current every day smoker cigarettes Packs smoked per day: 1 Vitals/I&O/Wt Last Vital Signs Pulse 67 03/03/21 15:20 Resp 17 03/03/21 15:20 BP 126/91 03/03/21 15:20 Pulse Ox 96 03/03/21 14:40 03/03/21 03/03/21 03/03/21 06:59 14:59 22:59 Intake Total 1000 / 1000 Balance 1000 / 1000 Weight last 48 hrs Weight 130 lb Physical Exam Narrative: EXAM NARRATIVE: GENERAL: Frail appearing man lying in bed in no acute distress HEENT: Pupils equal round reactive to light. No pallor or icterus. NECK: No JVD. No carotid bruit. CARDIOVASCULAR SYSTEM: S1-S2 regular. No murmur or gallops. RESPIRATORY SYSTEM: Chest clear to auscultation. No wheezes rhonchi or rubs heard. No use of accessory muscles. ABDOMEN: Soft, nontender and nondistended. Normal bowel sounds present. EXTREMITIES: No cyanosis or clubbing. No edema. No signs of chronic venous insufficiency. REMOTE BROADCAST TECHNICIAN: Patient is alert oriented ?3. No focal neurological deficits. SKIN: Normal turgor and temperature. No breakdown or rash. PSYCH: Normal insight and judgment. A&P Assessment and plan (1) Syncope and collapse: Syncopal episode on arrival with seizure-like activity and low glucose level Status: Acute (2) Bradycardia: Status: Acute (3) Sinus pause: Longest ~3.9 sec pause on monitor. -Episode here was associated with multiple needlesticks while attempting IV cannulation along with nausea. -Patient not on AV austin blockers. -Continue to monitor closely on telemetry Status: Acute (4) Nicotine dependence, cigarettes, uncomplicated: Status: Chronic (5) Paranoid schizophrenia: Status: Chronic (6) Amphetamine substance use disorder, moderate, in early remission: Status: Chronic Additional A&P Information Leukocytosis History of IV drug abuse Thank you for allowing me to participate in patient's care. Please feel free to call with questions or concerns. Consult Attestations Time Spent in Patient Care: 16 - 35 minutes (>than 50% of time spent in counselling and/or direct pt care on unit) . Coding Level of Care Code Acute Clerical Office Worker for Arturo Mtz Diagnoses Syncope and collapse R55 Bradycardia R00.1 Sinus pause I45.5 Nicotine dependence, cigarettes, uncomplicated F17.210 Paranoid schizophrenia F20.0 Amphetamine substance use disorder, moderate, in early remission F15.21
--- NOTE | 2021-03-03 17:22 | PM.HP ---
Providers/Chief Complaint Chief Complaint: FALL, SEIZURE LIKE ACTIVITY History of Present Illness Jaya Cary is a 45 year old male who has history of PTSD, polysubstance abuse with methamphetamine and THC [facility] with chief complaint of syncopal event. Patient is stating that for last few years he has been experiencing syncopal events. Normally he he can tell that he is going to pass out, he starts feeling numbness and tingling and then notices vision change which she is describing as dark field. He is stating that sometimes he uses condensed milk to make his presyncopal symptoms better. He has been noticing chest discomfort on and off without any inciting event which she is describing as burning sensation substernally with numbness of left arm. He considers himself an active adult. He is also endorsing mild chest discomfort during sexual activity. No recent shortness of breath, fever, diarrhea, skin rash or tick bites. Today he was talking with his mother over the phone when he started noticing numbness of his arm and vision change, he knew that he is going to pass out, he alarmed his mother as well. Right after that he experienced an syncopal event which was witnessed by the job development specialist. No seizure-like movements were noticed. No post ictal state. No urine incontinence or tongue bite Review of Systems Const: Denies: fever(s) Eyes: Reports: change in vision ENMT: Denies: throat pain Card: Reports: chest pain Resp: Denies: dyspnea GI: Denies: abdominal pain : Denies: flank pain Musc: Denies: neck pain Skin/Breast: Denies: rash Neuro: Denies: headache(s) Psych: Reports: anxiety and depression Endo: Denies: polyuria Apolinar/Lymph: Denies: easy bruising All/Imm: Denies: urticaria Medications/Allergies Home Medications Medication Instructions Recorded Confirmed Last Taken Type clonazepam 1 mg tablet 1 mg PO TID PRN #90 tab 02/18/21 03/03/21 Unknown Rx haloperidol 10 mg tablet 10 mg PO TID PRN #90 tab 02/18/21 03/03/21 Unknown Rx hydroxyzine HCl 50 mg tablet 50 mg PO BID PRN #60 tab 02/20/21 03/03/21 03/02/21 Rx Allergies Allergy/AdvReac Type Severity Reaction Status Date / Time Penicillins Allergy Unknown Unknown Verified 02/01/20 16:24 teramycin Allergy Unknown Uncoded 02/01/20 16:14 PFSH Acute PFSH: Medical History Amphetamine substance use disorder, moderate, in early remission Chronic post-traumatic stress disorder Nicotine dependence, cigarettes, uncomplicated Paranoid schizophrenia Surgical History H/O knee surgery Family History Family/Other Family history of premature coronary artery disease Uncle sudden cardiac arrest age 19 Social History Smoking and tobacco status: current every day smoker cigarettes Packs smoked per day: 2 Alcohol intake: never Substance/Drug Use: current Substance/Drug use type: Marijuana and Methamphetamine Vitals/I&O/Wt Last Vital Signs Pulse 99 03/03/21 16:51 Resp 13 03/03/21 16:51 BP 128/89 03/03/21 16:51 Pulse Ox 100 03/03/21 16:51 03/03/21 03/03/21 03/03/21 06:59 14:59 22:59 Intake Total 1000 / 1000 Balance 1000 / 1000 Weight last 48 hrs Weight 58.967 kg Physical Exam Narrative: EXAM NARRATIVE: Young male Sitting comfortably in his bed No active chest pain S1, S2 systolic murmur grade 2/6 right second intercostal space without radiation Apical pulse fifth intercostal space Multiple skin tattoos Abdomen soft nontender Lower extremity no edema gangrene ulcer EOMI, PERRLA Appears anxious No joint swelling or cellulitis No skin rash Data : 03/03/21 14:25 03/03/21 14:25 A&P Assessment and plan (1) Syncope and collapse: Status: Acute (2) Bradycardia: Status: Acute (3) Sinus pause: Status: Acute (4) Paranoid schizophrenia: Status: Chronic Additional A&P Information Syncope and collapse Patient has been experiencing presyncopal and syncopal events for last few years, endorsing family history of sudden cardiac arrest uncle at age 19, patient is endorsing chest discomfort, numbness of his left arm Never had any seizure-like activities or postictal state I will check prolactin level Prolonged QTC with bradycardia noted, sinus pauses were noticed by the ER physician, avoid QTC prolonging antipsychotics At the time of my evaluation he is hemodynamically stable no active chest pain EKG showing T wave changes in isolated leads V3 and aVL, no typical Brugada signs Dr. Gregory consulted, Patient is endorsing congenital murmur, request echo to rule out hocum TSH, potassium, magnesium normal, no active signs of ACS U tox negative, slightly elevated lactic acid, rule out breakthrough seizure event follow-up with prolactin Would use atropine if you become symptomatic, apply pacer pads and monitor on telemetry floor Cardiac diet DVT prophylaxis Lovenox Full code Attestations Medical Necessity Statement*: Anticipating discharge within 48 hours need evaluation for syncopal event Time Spent in Patient Care: 30mins Coding Level of Care Code Acute Primer And Powder Canning Leader for Chg Fwd Diagnoses Syncope and collapse R55 Bradycardia R00.1 Sinus pause I45.5 Paranoid schizophrenia F20.0
[2021-03-03 17:27] LABS: Troponin 5 2HR Delta 0 ABS# (0-10)
--- NOTE | 2021-03-03 17:38 | PC.NURSE ---
pt released from police custody. security at bedside. pt states no needs at this time
[2021-03-03 17:57] LABS: SARS Covid-2 Antigen Negative (Negative)
[2021-03-03 21:06] LABS: Troponin 5 6HR Delta 0 ng/L (0-12)
[2021-03-03] MEDS: enoxaparin 40 mg/0.4 mL Syringe SUBCUT (22:54)
[2021-03-03] MEDS: CLONazepam 1 mg Tablet PO (22:57)
[2021-03-04] MEDS: acetaminophen 325 mg Tablet PO (00:11)
--- NOTE | 2021-03-04 01:17 | PC.NURSE ---
Around 2229: Patient c/o headache. Notified Dr. Matthews. Orders received, see OCT.
[2021-03-04 03:55] VITALS: BP 101/52; PULSE 75; RESP 14; TEMP 36.8; O2SAT 92
[2021-03-04 05:21] LABS: Blood Urea Nitrogen 13 mg/dL (6-20); Calcium 8.5 mg/dL (8.5-10.5); Carbon Dioxide 27 mmol/L (22-29); Chloride 105 mmol/L (98-107); Creatinine Clr Calc Pharmacy 98.2783; Glucose 96 mg/dL (65-115); Osmolality Calculated 290 mOsm/kg (285-295); Sodium 140 mmol/L (136-145)
[2021-03-04 05:43] VITALS: PULSE 95
[2021-03-04 08:00] VITALS: BP 133/88; PULSE 117; RESP 19; TEMP 36.8; O2SAT 95
--- NOTE | 2021-03-04 08:00 | PC.NURSE ---
Pt is talking on the phone very pleasant, alert, orientedx4. denies any pain. pt stated he has been up and moving around his room and to bathroom. denies any dizziness. oriented pt to staff.
--- NOTE | 2021-03-04 09:11 | PC.CHAP ---
Pastoral Care Encounter/Spiritual Assessment Type of Contact [] Declined accounting consultant visit [] Patient/Family/Request visit [] Outpatient visit [] Follow-up visit [] Physician referral [] Code/Alert [x] Routine visit [] Staff referral [] Actively dying [] Patient sleeping [] Family support [] [] Out of room [] Palliative care [] [] Receiving care in room [] Pre-surgical visit [] Trauma [] Long length of stay [] ICU visit [x] Other: quarantined Relational/Emotional Strength [] Patient feels connected with others/family/visitors/staff [] Distress [] Loneliness/isolation [] Abandonment Spirituality of Patient [] Person of [place] [] Attends Latter Day of their [place] [] Believes in Prayer [] Reads Bible or Catholic materials [] There are Spiritual issues to be addressed Core Drill Operator Helper Interventions [x] Prayer [] Active listening [] Non-anxious presence [] Spiritual/emotional support [] Crisis/trauma care [] Spiritual counseling [] Bereavement support [] Provided bereavement packet [] Provided Bible/devotional materials [] Provided toy/stuffed animal, coloring book to patient or family member [] Provided Communion [] Anointing/[place] [] Salvation [x] Completed spiritual assessment [] Other: Impact on Illness or Injury [] Angry [] Fearful [] Anxious [] Often cries [] Exhaustion [] Unable to work [] Unable to attend voodoo [] Unable to walk/stand [] Unable to read [] Unable to drive [] Unable to eat/drink [] Unable to sleep [] Unable to be with family [] Patient intubated [] Other: Summary Time spent with patient
[2021-03-04 11:45] VITALS: BP 122/78; PULSE 88; RESP 17; TEMP 36.9; O2SAT 93
--- NOTE | 2021-03-04 11:59 | PM.PN ---
Subjective Subjective: Interval history: No complaints. Feels well Medications: Reviewed: Yes Vitals/I&O/Wt Last Vital Signs Temp 98.5 F 03/04/21 11:45 Pulse 88 03/04/21 11:45 Resp 17 03/04/21 11:45 BP 122/78 03/04/21 11:45 Pulse Ox 93 03/04/21 11:45 03/03/21 03/04/21 03/04/21 22:59 06:59 14:59 Intake Total 1200 / 1200 240 / 1440 360 / 360 Output Total 1000 / 1000 250 / 1250 Balance 200 / 200 -10 / 190 360 / 360 Weight last 48 hrs Weight 130 lb Physical Exam Narrative: EXAM NARRATIVE: GENERAL: AB, poorly nourished, no acute distress HEENT: Pupils equal round reactive to light. No pallor. Poor dentition NECK: No JVD. No carotid bruit. CARDIOVASCULAR SYSTEM: S1-S2 regular. No murmur or gallops. RESPIRATORY SYSTEM: Chest clear to auscultation. No wheezes rhonchi or rubs heard. No use of accessory muscles. ABDOMEN: Soft, scaphoid stomach, nontender and nondistended. Normal bowel sounds present. EXTREMITIES: No cyanosis or clubbing. No edema. BRUSH MAKER MACHINE: Patient is alert oriented ?3. No focal neurological deficits. SKIN: Normal turgor and temperature. PSYCH: Normal insight and judgment. Data : 03/03/21 14:25 03/04/21 04:42 A&P Assessment and plan (1) Syncope and collapse: Syncopal episode on arrival with seizure-like activity and low glucose level. Patient states he had good breakfast yesterday morning and did not skip a meal. No recurrent episodes or seizure-like activity. -However several prior episodes. Possible etiology being bradycardia related versus ?low glucose vs in setting of meth/marijuana use. -Normal LV function and low normal to mildly reduced RV function on echocardiogram. No evidence of RV regional wall motion abnormality or RV sacculations or very prominent moderator band -No evidence of ventricular arrhythmia on telemetry so far. No recurrent episodes of bradycardia/pauses. No Brugada pattern epsilon waves. Prolonged QT interval on one of the EKGs has normalized. -Family history of sudden at age 19 in maternal uncle d/t heart attack. No autopsy that patient knows about. -Avoid QT prolonging drugs. -Plan for event monitor for 3 weeks on discharge. -Follow-up in office in 6 to 8 weeks. Status: Acute (2) Bradycardia: Episode in ER likely vasovagal related however prior episodes are unclear in etiology. Status: Acute (3) Sinus pause: Longest ~3.9 sec pause on monitor. -Episode here was associated with multiple needlesticks while attempting IV cannulation along with nausea. -Patient not on AV austin blockers. Status: Acute (4) Nicotine dependence, cigarettes, uncomplicated: Status: Chronic (5) Paranoid schizophrenia: Status: Chronic (6) Amphetamine substance use disorder, moderate, in early remission: Status: Chronic Additional A&P Information Leukocytosis History of IV drug abuse Thank you for allowing me to participate in patient's care. Please feel free to call with questions or concerns. Attestations Medical Necessity Statement*: Stable to be discharged from cardiac standpoint Time Spent in Patient Care: 16 - 35 minutes Coding Level of Care Code Acute Pattern Grader Supervisor for [facility] Fwd Diagnoses Syncope and collapse R55 Bradycardia R00.1 Sinus pause I45.5 Nicotine dependence, cigarettes, uncomplicated F17.210 Paranoid schizophrenia F20.0 Amphetamine substance use disorder, moderate, in early remission F15.21
--- NOTE | 2021-03-04 13:00 | PC.NURSE ---
Transport Pt mother Dylan was called and she stated his callie will come and pick him up.
--- NOTE | 2021-03-04 13:32 | P.DS_ITS ---
Discharge Providers Date of Admission: 03/03/21 16:11 Date of Discharge: March 04, 2021 Attending Provider at Admission: Judith Xavier MD Attending Provider at Discharge: Judith Xavier MD Diagnoses at Discharge Discharge Diagnosis (1) Syncope and collapse: Status: Acute (2) Bradycardia: Status: Acute (3) Sinus pause: Status: Acute (4) Nicotine dependence, cigarettes, uncomplicated: Status: Chronic (5) Paranoid schizophrenia: Status: Chronic (6) Amphetamine substance use disorder, moderate, in early remission: Status: Chronic Reason for Visit Reason for Visit: FALL, SEIZURE LIKE ACTIVITY Hospital Course Hospital Course HPI: Jaya Cary is a 45 year old male with history of IV drug abuse (methamphetamine and opiates, quit 1 year back as per patient), currently smoking marijuana and methamphetamine. He also has history of psychosis paranoid schizophrenia and chronic PTSD. He has been in and out of custodial multiple times. Currently he is in custodial for last 2 weeks for charges of burglary and resisting arrest. He was talking to his mom over the phone earlier today when he fell, passed out and possibly had a seizure approx 2 min in duration. He hit his arm and head on the ground. EMS was called and apparently her sugar was in 40s and he was given oral glucose prior to his arrival to the ER. No known prior history of seizures. Patient does tell me that he has been having intermittent episodes of presyncope which on several occasions have been positional and associated with nausea for last several years. While in ER patient's heart rate dropped from 100 bpm to 20-30's and he had ~3.9 sec longest pause with blood pressure dropping systolically and 70s. He received 1 L of normal saline with improvement in his blood pressure. At the time of examination patient complains of intermittent episodes of chest discomfort that has been going on for last several years. He has not been vaccinated against COVID-19. Patient states he has not been taking any medications on a regular basis for his paranoid schizophrenia. EKG on arrival showed sinus rhythm, normal axis no ST-T wave changes. Subsequent EKG with sinus bradycardia at 59 bpm with prolonged QT interval. Hospital course: Patient's heart rate stayed above 60s during his hospitalization, no telemetry events, hemodynamically stable, normal TSH magnesium and potassium normal, no signs of Brugada syndrome on EKG, cardiology recommendations appreciated, he will be discharged with event monitor today, patient was asked not to use his Haldol or hydroxyzine to avoid QTC prolongation Event monitor will be followed up by Dr. Gregory, this plan has been decided after discussion with her. His sinus pause in the ER was deemed secondary to polysubstance abuse and multiple IV attempts, for possible breakthrough seizures, would not need any antiepileptic, can follow-up outpatient with a neurologist. Physical Exam Narrative: EXAM NARRATIVE: Young male Sitting comfortably in his bed No active chest pain S1, S2 systolic murmur grade 2/6 right second intercostal space without radiation Apical pulse fifth intercostal space Multiple skin tattoos Abdomen soft nontender Lower extremity no edema gangrene ulcer EOMI, PERRLA Appears anxious No joint swelling or cellulitis No skin rash Discharge Data Data Completed and Pending: Completed Studies During Hospitalization Category Date Time Status CT cervical spin wo con* [id number] Urge nt Cat Scan 03/03/21 12:[address] head wo con* 7 0450 Urgent Cat Scan 03/03/21 12:35 Completed XR chest 1V juli ble [id number] Urgent Exams 03/03/21 12:35 Completed XR humerus RT 730 60 Stat Exams 03/03/21 12:35 Completed CV. echo complete * [id number] Routine Ultrasound 03/04/21 17:40 Completed Pending at discharge Category Date Time Status CA cardiac event monitor Routine Exams 03/04/21 13:29 Ordered Labs from last 24 hours 03/04/21 03/03/21 03/03/21 04:42 20:22 17:12 WBC RBC Hgb Hct MCV MCH MCHC RDW Plt Count MPV Neut % (Auto) Lymph % (Auto) [place] % (Auto) Eos % (Auto) Baso % (Auto) Neut # (Auto) Lymph # (Auto) [place] # (Auto) Eos # (Auto) Baso # (Auto) Nucleated RBC % (a uto) Nucleated RBCs # Sodium 140 Potassium 4.0 Chloride 105 Carbon Dioxide 27 Anion Gap 12.0 BUN 13 Creatinine 0.8 GFR Calculation 105.0 Glucose 96 Calculated Osmolal ity 290 Lactate Calcium 8.5 Phosphorus Magnesium Total Bilirubin AST ALT Alkaline Phosphata se Creatine Kinase Troponin T Baselin e Troponin T 120 Min [place] Troponin T Troponin T Hi Sens 6Hr 6.00 Troponin T Hi Sens 6Hr [place] 0 Total Protein Albumin Globulin TSH Urine Color Urine Appearance Urine pH Ur Specific Gravit y Urine Protein Urine Glucose (UA) Urine Ketones Urine Blood Urine Nitrate Urine Bilirubin Prot Sulfosalicyli c Acd Urine Urobilinogen Ur Leukocyte Rosario ase Urine Opiates Scre en Ur Barbiturates Sc reen Ur Phencyclidine S crn Ur Amphetamines Sc reen U Benzodiazepines Scrn Urine Cocaine Scre en U Marijuana (THC) Screen SARS-CoV-2 Ag (Rap id) Negative 03/03/21 03/03/21 03/03/21 16:47 15:15 15:15 WBC RBC Hgb Hct MCV MCH MCHC RDW Plt Count MPV Neut % (Auto) Lymph % (Auto) [place] % (Auto) Eos % (Auto) Baso % (Auto) Neut # (Auto) Lymph # (Auto) [place] # (Auto) Eos # (Auto) Baso # (Auto) Nucleated RBC % (a uto) Nucleated RBCs # Sodium Potassium Chloride Carbon Dioxide Anion Gap BUN Creatinine GFR Calculation Glucose Calculated Osmolal ity Lactate Calcium Phosphorus Magnesium Total Bilirubin AST ALT Alkaline Phosphata se Creatine Kinase Troponin T Baselin e Troponin T 120 Min [place] 6.00 Delta Troponin T 0 Troponin T Hi Sens 6Hr Troponin T Hi Sens 6Hr [place] Total Protein Albumin Globulin TSH Urine Color Yellow Urine Appearance Clear Urine pH 9 H Ur Specific Gravit y 1.015 Urine Protein Neg Urine Glucose (UA) Norm Urine Ketones Negative Urine Blood Neg Urine Nitrate Negative Urine Bilirubin Neg Prot Sulfosalicyli c Acd Negative Urine Urobilinogen Norm Ur Leukocyte Rosario ase Negative Urine Opiates Scre en Negative Ur Barbiturates Sc reen Negative Ur Phencyclidine S crn Negative Ur Amphetamines Sc reen Negative U Benzodiazepines Scrn Negative Urine Cocaine Scre en Negative U Marijuana (THC) Screen Negative SARS-CoV-2 Ag (Rap id) 03/03/21 03/03/21 03/03/21 14:25 14:25 14:25 WBC RBC Hgb Hct MCV MCH MCHC RDW Plt Count MPV Neut % (Auto) Lymph % (Auto) [place] % (Auto) Eos % (Auto) Baso % (Auto) Neut # (Auto) Lymph # (Auto) [place] # (Auto) Eos # (Auto) Baso # (Auto) Nucleated RBC % (a uto) Nucleated RBCs # Sodium 138 Potassium 4.3 Chloride 99 Carbon Dioxide 28 Anion Gap 15.3 BUN 10 Creatinine 0.9 GFR Calculation 91.7 Glucose 110 Calculated Osmolal ity 286 Lactate 2.6 H Calcium 9.5 Phosphorus 3.5 Magnesium 2.1 Total Bilirubin 0.3 AST 12 ALT 8 Alkaline Phosphata se 65 Creatine Kinase 26 L Troponin T Baselin e 6 Troponin T 120 Min [place] Troponin T Troponin T Hi Sens 6Hr Troponin T Hi Sens 6Hr [place] Total Protein 6.8 Albumin 4.4 Globulin 2.4 TSH 1.60 Urine Color Urine Appearance Urine pH Ur Specific Gravit y Urine Protein Urine Glucose (UA) Urine Ketones Urine Blood Urine Nitrate Urine Bilirubin Prot Sulfosalicyli c Acd Urine Urobilinogen Ur Leukocyte Rosario ase Urine Opiates Scre en Ur Barbiturates Sc reen Ur Phencyclidine S crn Ur Amphetamines Sc reen U Benzodiazepines Scrn Urine Cocaine Scre en U Marijuana (THC) Screen SARS-CoV-2 Ag (Rap id) 03/03/21 14:25 WBC 13.4 H RBC 4.81 Hgb 14.7 Hct 43.9 MCV 91.3 MCH 30.6 MCHC 33.5 RDW 12.7 Plt Count 339 MPV 10.8 H Neut % (Auto) 75.9 Lymph % (Auto) 18.1 [place] % (Auto) 4.3 Eos % (Auto) 0.6 Baso % (Auto) 0.7 Neut # (Auto) 10.14 H Lymph # (Auto) 2.4 [place] # (Auto) 0.6 Eos # (Auto) 0.1 Baso # (Auto) 0.1 Nucleated RBC % (a uto) 0 Nucleated RBCs # 0.0 Sodium Potassium Chloride Carbon Dioxide Anion Gap BUN Creatinine GFR Calculation Glucose Calculated Osmolal ity Lactate Calcium Phosphorus Magnesium Total Bilirubin AST ALT Alkaline Phosphata se Creatine Kinase Troponin T Baselin e Troponin T 120 Min [place] Troponin T Troponin T Hi Sens 6Hr Troponin T Hi Sens 6Hr [place] Total Protein Albumin Globulin TSH Urine Color Urine Appearance Urine pH Ur Specific Gravit y Urine Protein Urine Glucose (UA) Urine Ketones Urine Blood Urine Nitrate Urine Bilirubin Prot Sulfosalicyli c Acd Urine Urobilinogen Ur Leukocyte Rosario ase Urine Opiates Scre en Ur Barbiturates Sc reen Ur Phencyclidine S crn Ur Amphetamines Sc reen U Benzodiazepines Scrn Urine Cocaine Scre en U Marijuana (THC) Screen SARS-CoV-2 Ag (Rap id) Vitals: Last Vital Signs Temp 98.5 F 03/04/21 11:45 Pulse 88 03/04/21 11:45 Resp 17 03/04/21 11:45 BP 122/78 03/04/21 11:45 Pulse Ox 93 03/04/21 11:45 Discharge Plan Discharge Patient Disposition: Home Condition: Stable Prescriptions: Continued clonazepam [Klonopin] 1 mg tablet 1 mg PO TID PRN (Reason: anxiety) Qty: 90 RF: 3 Discontinued haloperidol 10 mg tablet 10 mg PO TID PRN (Reason: psychosis/agitation) Qty: 90 RF: 6 hydroxyzine HCl 50 mg tablet 50 mg PO BID PRN (Reason: anxiety) Qty: 60 RF: 6 Discharge Orders: Discharge Order (Routine); Ordered 03/04/21 Ordered By: Judith Xavier Referrals: Lavonne Gregory MD [Physician] - 1 month Mya Alberto MD [Physician] - 3 months Discharge Diet: Cardiac Discharge Activity: Resume usual activity Patient Instructions: Bradycardia, Syncope (DC), Opioid Safety Activity Restrictions/Additional Instructions: Event monitor to monitor abnormal cardiac activity Avoid Haldol and hydroxyzine because of QTC prolongation noted on your EKG which can cause a malignant arrhythmia Abstain from methamphetamine and THC/marijuana In case of recurrence of symptoms please come back to the ER Discharge Attestations Time Spent in Discharge Care*: less than 30 min Quality Metrics Clinical Quality Measures During this hospital stay, did patient experience: None Coding Level of Care Code Acute Chg FW DC note Diagnoses Syncope and collapse R55 Bradycardia R00.1 Sinus pause I45.5 Nicotine dependence, cigarettes, uncomplicated F17.210 Paranoid schizophrenia F20.0 Amphetamine substance use disorder, moderate, in early remission F15.21
--- NOTE | 2021-03-04 14:00 | PC.NURSE ---
[facility] regarding [facility]'s discharge and setting him up w/qc chemist and event monitor. Per staff pt is okay to go home they will talked to him until he is medically cleared. 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
[2021-03-04 14:09] LABS: Prolactin 14.96 ng/mL (4.0-15.2)
[2021-03-04 14:30] VITALS: BP 114/86; PULSE 100; RESP 18; TEMP 37
--- NOTE | 2021-03-04 17:40 | USCV_ITS ---
Jaya Cary Age: 45 Gender: M : 1975 Exam Date: 03/04/2021 05:30 Ordering Phys: Lavonne Gregory MD ([email or web address]) Technologist: Sruthi Mock Exam Location: [facility] [place] Indication: BRADYCARDIA WITH SYNCOPE BP: 101 / 52 HR: 65 Rhythm: Sinus Technical Quality: Adequate MEASUREMENTS (Male / Female) Normal Values 2D ECHO LV Diastolic Diameter PLAX 3.4 cm 4.2 - 5.9 / 3.9 - 5.3 cm LV Systolic Diameter PLAX 2.5 cm LV Chamber Size 3.4 cm IVS Diastolic Thickness 1.0 cm 0.6 - 1.0 / 0.6 - 0.9 cm IVS Systolic Thickness 1.5 cm LVPW Diastolic Thickness 1.2 cm 0.6 - 1.0 / 0.6 - 0.9 cm LVPW Systolic Thickness 1.9 cm RV Chamber Size 3.4 cm LVOT Diameter 2.1 cm LV Ejection Fraction 2D Teich 55.9 % LV Ejection Fraction MOD 2C 43.8 % LV Ejection Fraction 2C AL 45.5 % LA Diameter 2.4 cm LA Width 2.7 cm LA Height 2.8 cm RA Width 3.9 cm RA Height 3.8 cm Aorta at Sinotubular Diameter 2.8 cm M-MODE LV Diastolic Diameter MM 4.9 cm 4.2 - 5.9 / 3.9 - 5.3 cm LV Systolic Diameter MM 3.4 cm LV Ejection Fraction MM Teich 57.2 % IVS Diastolic Thickness MM 1.2 cm 0.6 - 1.0 / 0.6 - 0.9 cm IVS Systolic Thickness MM 1.7 cm LVPW Diastolic Thickness MM 1.1 cm 0.6 - 1.0 / 0.6 - 0.9 cm LVPW Systolic Thickness MM 1.3 cm Aortic Annulus Diameter 2.6 cm LA Ao Ratio MM 0.8 MV E Point Septal Separation 0.5 cm DOPPLER AV Peak Velocity 103.0 cm/s LVOT Peak Velocity 76.0 cm/s AV Area Cont Eq vti 2.9 cm squared AV Area Cont Eq pk 2.5 cm squared MV Area PHT 3.1 cm squared Mitral E to A Ratio 1.2 MV E' Velocity 40.0 cm/s Mitral E to MV E' Ratio 4.3 Mitral E to LV E' Lateral Ratio 3.7 Mitral E to LV E' Septal Ratio 5.3 TR Peak Velocity 199.9 cm/s TR Peak Gradient 16.0 mmHg TR Mean Velocity 156.0 cm/s TR Mean Gradient 10.4 mmHg TR Velocity Time Integral 59.2 cm TV Peak E Velocity 75.0 cm/s Right Atrial Pressure 3.0 mmHg Pulmonary Artery Systolic Pressu 19.0 mmHg PV Peak Velocity 42.0 cm/s FINDINGS Left Ventricle Normal left ventricular size, systolic function and wall thickness, with no regional wall motion abnormalities. Left ventricular ejection fraction is estimated at 55%. Normal diastolic function. Right Ventricle Right ventricle not well visualized. Upper normal right ventricular size. Probably low normal to mildly decreased right ventricle systolic function. Right ventricular systolic pressure 19 mmHg. Right Atrium Normal right atrial size. Right atrial pressure estimated at 3 mmHg. Left Atrium Normal left atrial size. Mitral Valve Mildly thickened mitral valve. No mitral valve stenosis. No mitral valve regurgitation. Aortic Valve Structurally normal trileaflet aortic valve. No aortic valve stenosis. No aortic valve regurgitation. Tricuspid Valve Structurally normal tricuspid valve. Trace to mild tricuspid valve regurgitation. Pulmonic Valve Pulmonic valve not well visualized. Pericardium No pericardial effusion. Aorta Normal-sized aortic root. Normal-sized inferior vena cava with normal respiratory variation. CONCLUSIONS 1. Normal left ventricular size, systolic function and wall thickness, with no regional wall motion abnormalities. Left ventricular ejection fraction is estimated at 55%. Normal diastolic function. 2. Probably low normal to mildly decreased right ventricle systolic function. 3. Trace to mild tricuspid valve regurgitation. 4. No pericardial effusion. 5. Normal pulmonary artery pressure. 6. No prior similar studies to compare. Lavonne Gregory MD (Electronically Signed) Final Date: 04 March 2021 09:50 S
== END 2021-03-04 14:45 | disposition home or self-care (01) ==
LOC: ER 16:45 → CSU 18:17
PROVIDERS: Admitting Provider Internal Medicine; Emergency Provider Family Medicine; Visit Provider Internal Medicine
DX: R55 Syncope and collapse (principal); R00.1 Bradycardia, unspecified; I45.5 Other specified heart block; F17.210 Nicotine dependence, cigarettes, uncomplicated; F20.0 Paranoid schizophrenia; F15.21 Other stimulant dependence, in remission
CPT/HCPCS: 36415; 70450; 71045; 72125; 73060; 80048; 80053; 80306; 81003; 82550; 83605; 83735; 84100; 84146; 84443; 84484; 85025; 87426; 93005; 93271; 93306; 96360; 96372; 99285; G0378; J1650; J7030

== ENCOUNTER → 2023-02-04 14:48 | Outpatient (BNVA) | payer MEDICARE, MEDICAID, SELFPAY | PROVIDERS: Visit Provider Nurse Practitioner Psychiatric/Mental Health | DX: F25.0 Schizoaffective disorder, bipolar type (principal); F43.12 Post-traumatic stress disorder, chronic; F15.20 Other stimulant dependence, uncomplicated; F12.20 Cannabis dependence, uncomplicated; F17.210 Nicotine dependence, cigarettes, uncomplicated; Z03.89 Encounter for observation for other suspected diseases and conditions ruled out; Z79.899 Other long term (current) drug therapy | CPT/HCPCS: 80053; 80061; 80307; 81001; 83036; 85025 ==

== ENCOUNTER → 2025-05-04 16:28 | Outpatient (BNVA) | payer MEDICARE, OTHER, SELFPAY | PROVIDERS: Visit Provider Nurse Practitioner Psychiatric/Mental Health | DX: Z79.899 Other long term (current) drug therapy (principal) | CPT/HCPCS: 80053; 80061; 83036 ==